=== PATIENT | male | born 1980 | race Caucasian/White ===

== ENCOUNTER 2022-01-30 17:03 | Emergency (ER) | payer MEDICAID, OTHER ==
[~2022-01-30] VITALS: Ht 182.9 cm; Wt 93.0 kg
[2022-01-30 17:25] VITALS: BP 110/77
[2022-01-30] MEDS ORDERED: IBUP800T26 PO (19:25)
== END 2022-01-30 19:50 | disposition home or self-care (01) ==
LOC: ER 17:03
DX: S63.501A Unspecified sprain of right wrist, initial encounter (principal); S60.221A Contusion of right hand, initial encounter; V19.9XXA Pedal cyclist (driver) (passenger) injured in unspecified traffic accident, initial encounter; Y93.89 Activity, other specified; Y92.89 Other specified places as the place of occurrence of the external cause; Y99.8 Other external cause status
CPT/HCPCS: 29125; 73110